=== PATIENT | male | born 1990 | race Caucasian/White ===

== ENCOUNTER 2024-04-05 17:25 | Emergency (ER) | payer OTHER, SELFPAY ==
[2024-04-05 17:31] VITALS: BP 141/100
--- NOTE | 2024-04-05 18:48 | ED.GENMED ---
History of Present Illness
General
Chief Complaint: Musculo-Skeletal Complaint
Time Seen by Provider: 04/05/24 18:19
History of Present Illness
History of Present Illness:
33-year-old male without significant past medical history presenting for right fourth finger pain. Patient [place], broke his fall with his right hand. Denies hitting his head or loss consciousness. Has since
been unable to bend his right fourth digit. Denies numbness or tingling. Denies any additional injuries from the fall or additional acute medical complaints
Phy Exam
Physical Exam
Physical Exam:
General: Well-appearing, no clinical signs of dehydration, nontoxic and in no acute distress
HEENT: protecting airway
Neck: appears supple
CV: Normal heart rate
Resp: No accessory muscle use, no increased work of breathing
Abd: no distension
Extremities: Obvious deformity to the right fourth finger. Sensation intact, range of motion limited. Mild swelling, no redness
Neuro: alert, no focal neurologic deficit
: deferred
Rectal: deferred
Psych: Normal affect
Skin: Intact
Course
Orders/Labs/Results
Orders:
Orders
04/05/24 17:33
Finger(s)/Thumb 2 View Rt [CR Finger(s)/thumb Min 2 Vw Rt] Urgent
Comment:
Reason For Exam: fell and hit finger on rock + deformity
Indicate Which Finger:: Ring Finger
04/05/24 18:37
Hand, Right 3 View [CR Hand - Right Min 3 Views] Urgent
Comment:
Reason For Exam: s/p reduction of finger
Vital Signs
Initial and Last Documented VS:
Initial Vital Signs
Temp Pulse Resp BP Pulse Ox
98.0 F 92 16 141/100 98
04/05/24 17:31 04/05/24 17:31 04/05/24 17:31 04/05/24 17:31 04/05/24 17:31
Last Documented Vital Signs
Temp Pulse Resp BP Pulse Ox
98.0 F 92 16 141/100 98
04/05/24 17:31 04/05/24 17:31 04/05/24 17:31 04/05/24 17:31 04/05/24 17:31
Procedures
Joint/Fracture Reduction
Right Fourth Finger(s):
Indication for procedure:: finger dislocation
Procedure completed by: Silva Soto DO
Consent form signed: No
Anesthesia/sedation: 1% Lidocaine (digital block)
Injury was: closed
Further treatement: no treatment needed
Post reduction exam: stable
Capillary Refill: normal
Normal distal neurovascular exam?: Yes
MDM/Problems Addressed
MDM/Problems Addressed:
33-year-old male presenting for right fourth finger pain after a fall. Vital signs are normal.
On exam, obvious deformity to the right fourth finger, and x-ray confirms a dislocation. Subsequently relocated without difficulty. Please see procedure note. Repeat x-ray confirms relocation. No neurovascular compromise, finger splint. Stable
for discharge with outpatient supportive therapy
*Critical Care Note
Total Time (30-74mins, 75-104mins- exclusive of procedures): Not Applicable
ED Attending Note
-
Portions of this chart may have been created with voice recognition software.� Occasional wrong word or��sound alike� substitutions may have occurred due to the inherent limitations of voice recognition software.
Discharge Plan
Interventions
Interventions:
*General Assessment Last Done: 04/05/24 17:30
*Neglect/Abuse Screening Last Done: 04/05/24 17:30
Discharge Date and Time
Print Language: BRUNEIAN
== END 2024-04-05 19:46 | disposition home or self-care (01) ==
LOC: EMR 17:25
PROVIDERS: EMERGENCY PHYSICIAN Student in an Organized Health Care Education/Training Program
DX: S63.284A Dislocation of proximal interphalangeal joint of right ring finger, initial encounter (principal); W19.XXXA Unspecified fall, initial encounter
CPT/HCPCS: 26770; 99284; 73130; 73140